=== PATIENT | male | born 1980 ===

== ENCOUNTER 2016-09-16 02:48 | Inpatient (IN) | payer BC, OTHER ==
--- NOTE | 2016-09-16 03:42 | ED PDOC ---
HPI: Trauma/Fall - HPI Time Seen by Provider: 09/16/16 02:56 Chief Complaint (Nursing): Trauma Chief Complaint (Provider): Head Injury History Per: Patient History/Exam Limitations: no limitations Onset/Duration Of Symptoms: Hrs Location Of Injury: Left: Head (abrasions noted to left side of face, contusion noted to left side of forehead), Anterior: Head Severity: Moderate Associated Symptoms: LOC, Memory Impairment (patient does not recall incident) Additional Complaint(s): Sid Pedro is a 36 year old male, with no pertinent past medical history, who presents to the emergency department for the evaluation of a head injury, that the patient experienced a couple of hours prior to arrival. Patient reports drinking alcohol prior to falling head first to the concrete and losing consciousness. His cousin witnessed the incident; however, patient denies recalling what happened. PMD: none specified - Fall Fall:Prior To Injury: Passed Out, Tripped Past Medical History Reviewed: Historical Data, Nursing Documentation, Vital Signs Vital Signs: Last Vital Signs Temp 98.7 F 09/16/16 02:54 Pulse 96 H 09/16/16 03:28 Resp 18 09/16/16 03:28 BP 140/62 09/16/16 03:28 Pulse Ox 100 09/16/16 03:28 - Medical History PMH: No Chronic Diseases - Surgical History Surgical History: No Surg Hx - Family History Family History: States: Unknown Family Hx - Social History Current smoker - smoking cessation education provided: Yes Alcohol: Social Drugs: Denies - Immunization History Hx Tetanus Toxoid Vaccination: No Hx Influenza Vaccination: No Hx Pneumococcal Vaccination: No - Home Medications Home Medications: Ambulatory Orders Medication Instructions Recorded No Known Home Med 09/16/16 - Allergies Allergies/Adverse Reactions: Allergies Allergy/AdvReac Type Severity Reaction Status Date / Time No Known Allergies Allergy Verified 03/02/14 15:25 Review of Systems ROS Statement: Except As Marked, All Systems Reviewed And Found Negative Musculoskeletal: Positive for: Other (head pain) Skin: Positive for: Bruising (left side of forehead), Other (abrasions noted to left side of face) Neurological: Positive for: Other (loss of consciousness, memory impairment). Negative for: Weakness, Numbness Physical Exam - Reviewed Nursing Documentation Reviewed: Yes Vital Signs Reviewed: Yes - Physical Exam Appears: Positive for: Non-toxic, No Acute Distress Head Exam: Positive for: NORMAL INSPECTION. Negative for: ATRAUMATIC ( abrasions noted to left side of face, contusion noted to left side of forehead) , NORMOCEPHALIC (swelling to left side of head) Skin: Positive for: Normal Color, Warm, Dry Eye Exam: Positive for: Normal appearance, EOMI, PERRL Neck: Positive for: Normal, Painless ROM Cardiovascular/Chest: Positive for: Regular Rate, Rhythm. Negative for: Murmur Respiratory: Positive for: Normal Breath Sounds. Negative for: Respiratory Distress Gastrointestinal/Abdominal: Positive for: Normal Exam, Soft. Negative for: Tenderness Extremity: Positive for: Normal ROM. Negative for: Tenderness, Swelling Neurologic/Psych: Positive for: Alert, er registrar II-XII, Oriented, Other (somnolent). Negative for: Motor/Sensory Deficits - Laboratory Results Result Diagrams: 09/16/16 03:58 09/16/16 03:58 - ECG O2 Sat by Pulse Oximetry: 100 (RA) Pulse Ox Interpretation: Normal - CT Scan/US CT Head w/o Contrast Other Rad Studies (CT/US): Interpreted By Me, Read By Radiologist, Radiology Report Reviewed - Critical Care Total Time (In Min): 30 Medical Decision Making Medical Decision Makin:56 Initial Impression: Head injury Initial Plan: * CT Head w/o Contrast * Alcohol Serum * Reevaluation Patient will be placed within ED Observation secondary to a head injury. Pending CT Head w/o Contrast. See Obs note for further updates. 03:[address] Colon called. As according to Dr. Justice, a repeat CT Head will be performed in six hours. but no acute surgical intervention needed at this time. 04:[address] Vu. Authorization Rep DR henning is also also aware of pt. will keep pt head eleveated above the bed DX alcohol intox, subarachnoid hemmoraghe, skull fractire. Scribe Attestation: Documented by Jimy Kraft, acting as a scribe for Toña Vega MD. Provider Scribe Attestation: All medical record entries made by the Scribe were at my direction and personally dictated by me. I have reviewed the chart and agree that the record accurately reflects my personal performance of the history, physical exam, medical decision making, and the department course for this patient. I have also personally directed, reviewed, and agree with the discharge instructions and disposition. Disposition - Clinical Impression Clinical Impression: Hemorrhage into subarachnoid space of neuraxis - Patient ED Disposition Is Patient to be Admitted: Yes - Disposition Disposition Time: 04:00 Condition: GUARDED
[2016-09-16 04:04] LABS: BASO # 0.1 K/uL (0.0-0.2); BASO % 0.8 % (0.0-2.0); EOS # 0.1 K/uL (0.0-0.7); EOS % 0.9 % (0.0-4.0); HEMATOCRIT 47.8 % (35.0-51.0); LYMPH # 1.2 K/uL (1.0-4.3); LYMPH % 12.4 % (20.0-40.0); MEAN CELL VOLUME 92.7 fl (80.0-94.0); MEAN CORPUSCULAR HEMOGLOBIN 31.4 pg (27.0-31.0); MEAN CORPUSCULAR HGB CONC 33.8 g/dL (33.0-37.0); MEAN PLATELET VOLUME 8.7 fl (7.2-11.7); MONO # 0.5 K/uL (0.0-0.8); MONO % 5.3 % (0.0-10.0); NEUT # 8.1 K/uL (1.8-7.0); NEUT % 80.6 % (50.0-75.0); NRBC % 0.1 % (0.0-0.0); RED CELL DISTRIBUTION WIDTH 14.3 % (11.5-14.5)
[2016-09-16 04:26] LABS: PARTIAL THROMBOPLASTIN TIME 22.4 SECONDS (23.3-32.5)
[2016-09-16 04:30] LABS: ALB/GLOB RATIO 1.2 (1.0-2.1); ALKALINE PHOSPHATASE 80 U/L (38-126); ALT/SGPT 34 U/L (21-72); AST/SGOT 49 U/L (17-59); BILIRUBIN,TOTAL 0.3 mg/dl (0.2-1.3); BLOOD UREA NITROGEN 18 mg/dl (9-20); CALCIUM 9.3 mg/dL (8.4-10.2); CARBON DIOXIDE 24 mmol/L (22-30); CHLORIDE 102 mmol/L (98-107); GFR AFRICAN-AMERICAN > 60; GLUCOSE,RANDOM 133 mg/dL (75-110); SODIUM 145 mmol/l (132-148); TOTAL PROTEIN 8.1 G/DL (6.3-8.2)
--- NOTE | 2016-09-16 04:40 | CP.PCM.CON ---
History of Present Illness - History of Present Illness History of Present Illness: Attending: Tyrel Vu MD PCP: None named Reason for Consult: Critical Care management Chief Complaint: Fall/Head trauma HPI: The Hx is obtained from the Patient, his cousin and the Medical records. He is a 36 years old male with no significant medical hx, was drinking alcohol. Brought to the ED after he tripped and fell to the concrete receiving abrasions to the left forehead, left side of the face and left chin. He referred an episode of LOC as he cannot recall the incident. at present he refers headache but no dizziness, no nausea nor vomits,,No chest pain nor palpitations, No diarrhea nor Dysuria. 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 absent: Fatigue, Fever - EENT Eyes: absent: Diplopia, Photophobia, Requires Corrective Lenses, Sees Flashes Ears: absent: Decreased Hearing, Ear Discharge, Ear Pain, Tinnitus Nose/Mouth/Throat: absent: Epistaxis, Nasal Congestion, Nasal Discharge - Cardiovascular Cardiovascular: absent: Chest Pain, Dyspnea, Leg Edema - Respiratory Respiratory: absent: Cough, Dyspnea, Stridor - Gastrointestinal Gastrointestinal: absent: Constipation, Diarrhea, Nausea, Vomiting - Genitourinary Genitourinary: absent: Dysuria, Flank Pain, Hematuria, Urinary Frequency - Musculoskeletal Musculoskeletal: absent: Arthralgias, Myalgias, Stiffness - Integumentary Integumentary: absent: Pruritus, Rash Additional comments: Abrasions to left side of face - Neurological Neurological: Headaches. absent: Confusion, Focal Weakness - Psychiatric Psychiatric: absent: Anxiety, Depression, Panic Attacks - Endocrine Endocrine: absent: Palpitations, Polydipsia, Polyphagia, Polyuria - Hematologic/Lymphatic Hematologic: absent: Easy Bleeding, Easy Bruising Past Patient History - Past Medical History & Family History Past Medical History?: No - Past Social History Smoking Status: Never Smoked Chewing Tobacco Use: No Cigar Use: No Alcohol: Social Drugs: Denies Home Situation {Lives}: With Family - CARDIAC Hx Cardiac Disorders: No - PULMONARY Hx Respiratory Disorders: No - NEUROLOGICAL Hx Alzheimer's Disease: No - HEENT Hx HEENT Problems: No - RENAL Hx Chronic Kidney Disease: No - ENDOCRINE/METABOLIC Hx Endocrine Disorders: No - HEMATOLOGICAL/ONCOLOGICAL Hx Blood Disorders: No - INTEGUMENTARY Hx Dermatological Problems: No - MUSCULOSKELETAL/RHEUMATOLOGICAL Hx Musculoskeletal Disorders: No - GASTROINTESTINAL Hx Gastrointestinal Disorders: No - GENITOURINARY/GYNECOLOGICAL Hx Genitourinary Disorders: No - PSYCHIATRIC Hx Psychophysiologic Disorder: No Hx Substance Use: No - SURGICAL HISTORY Hx Surgeries: No - ANESTHESIA Hx Anesthesia: No Hx Anesthesia Reactions: No Meds Allergies/Adverse Reactions: Allergies Allergy/AdvReac Type Severity Reaction Status Date / Time No Known Allergies Allergy Verified 03/02/14 15:25 Physical Exam - Head Exam Head Exam: NORMOCEPHALIC Additional comments: Contusion with erythema and edema at left forehead.left side of face with multiple abrasions including the chin - Eye Exam Eye Exam: EOMI, Normal appearance Pupil Exam: NORMAL ACCOMODATION, PERRL - ENT Exam ENT Exam: Mucous Membranes Moist, Normal Exam. absent: Normal External Ear Exam , Normal Oropharynx - Neck Exam Neck exam: Positive for: Full Rom, Normal Inspection. Negative for: Lymphadenopathy, Tenderness - Respiratory Exam Respiratory Exam: Clear to Auscultation Bilateral. absent: Rales, Rhonchi, Wheezes - Cardiovascular Exam Cardiovascular Exam: REGULAR RHYTHM, RRR, +S1, +S2. absent: Gallop, JVD - GI/Abdominal Exam GI & Abdominal Exam: Normal Bowel Sounds, Soft. absent: Mass, Organomegaly, Tenderness - Rectal Exam Rectal Exam: Deferred - Extremities Exam Extremities exam: Positive for: full ROM, normal inspection. Negative for: calf tenderness, pedal edema - Back Exam Back exam: NORMAL INSPECTION. absent: CVA tenderness (L), CVA tenderness (R) - Neurological Exam Neurological exam: Alert, CN II-XII Intact, Oriented x3, Reflexes Normal Additional comments: No facial droop. Motor strength 5/5 at both upper andl ower extremitits. - Psychiatric Exam Psychiatric exam: Normal Affect, Normal Mood - Skin Skin Exam: Cyanosis, Dry, Normal Color, Warm Results - Vital Signs Recent Vital Signs: Last Vital Signs Temp 98.7 F 09/16/16 02:54 Pulse 96 H 09/16/16 03:28 Resp 18 09/16/16 03:28 BP 140/62 09/16/16 03:28 Pulse Ox 100 04/10/17 04:18 - Labs Result Diagrams: 09/16/16 03:58 09/16/16 03:58 Labs: Laboratory Results - last 24 hr 09/16/16 09/16/16 03:25 03:58 WBC 10.0 RBC 5.16 Hgb 16.2 Hct 47.8 MCV 92.7 MCH 31.4 H MCHC 33.8 RDW 14.3 Plt Count 309 MPV 8.7 Neut % (Auto) 80.6 H Lymph % (Auto) 12.4 L Limestone % (Auto) 5.3 Eos % (Auto) 0.9 Baso % (Auto) 0.8 Neut # 8.1 H Lymph # 1.2 Limestone # 0.5 Eos # 0.1 Baso # 0.1 PT 11.9 H INR 1.14 H APTT 22.4 L Sodium 145 Potassium 4.0 Chloride 102 Carbon Dioxide 24 Anion Gap 23 H BUN 18 Creatinine 1.0 Est GFR ( Amer) > 60 Est GFR (Non-Af Amer) > 60 Random Glucose 133 H Calcium 9.3 Total Bilirubin 0.3 AST 49 ALT 34 Alkaline Phosphatase 80 Total Protein 8.1 Albumin 4.5 Globulin 3.6 Albumin/Globulin Ratio 1.2 Alcohol, Quantitative 84 H - Imaging and Cardiology CT scan - head Status: Image reviewed by me, Report reviewed by me Additional comment: FINDINGS: Brain: There is suggestion of trace subarachnoid blood along the inferior aspect of the right temporal occipital region and possibly at the lateral aspect of the right cistern of the lateral cerebral fossa. There is also trace subarachnoid blood suggested in the anterior left sylvian fissure. No significant white matter disease. No edema. Ventricles: Unremarkable. No ventriculomegaly. Bones/joints: There is a nondisplaced fracture of the left frontal bone which extends through the superior left orbital rim and obliquely across the left orbital roof. Soft tissues: Slight lateral left forehead soft tissue swelling. Sinuses: Unremarkable as visualized. No acute sinusitis. Mastoid air cells: Unremarkable as visualized. No mastoid effusion. IMPRESSION: 1. Slight soft tissue swelling in the lateral left forehead. 2. Nondisplaced fracture of the underlying left frontal bone extending through the superior left orbital rim and across the left orbital roof. 3. Minimal subarachnoid hemorrhage along the caudal aspect of the left temporal occipital region along the right tentorium and trace subarachnoid blood in the right cistern of the lateral cerebral fossa and in the anterior left sylvian fissure. Assessment & Plan - Assessment and Plan (Free Text) Assessment: #.Non displaced Fracture of left Frontal bone #. Acute Subaracnoid Hemorrhage Plan: 36 years old male was drinking alcohol, tripped and fell to the concrete receiving trauma to left forehead, left side of the face and left chin with LOC. He refers headache but no dizziness, no nausea nor vomits,,No chest pain nor palpitations, No diarrhea nor Dysuria. #.Non displaced Fracture of left Frontal bone extending through the superior left orbit rim and across the roof - Neuro surgery consulted - pain management #. Acute Small Subaracnoid Hemorrhage - Admit to ICU - Dr Justice neurosurgeon on consult - Neuro checks Q1h - Controll Blood Pressure - NPO - IV fluids - Repeat Head CT without contrast in 6 hours #. Alcohol abuse - Banana bag with Thiamine/ MV/ Folic Acid #. Stomach Ulcer prophylaxis with Pantoprazole #. DVT prophylaxis with SCD #. Code Status: Full - Date & Time Date: 09/16/16 Time: 04:40
[2016-09-16] MEDS ORDERED: Sodium Chloride 0.9% 1,000 ML IV SCH (05:00)
[2016-09-16] MEDS ORDERED: Multivitamin (MVI) 10 ML, Thiamine 100 MG, Folic Acid 1 MG in Sodium Chloride 0.9% 1,00... IV ONE (05:13)
[2016-09-16 07:46] VITALS: BMI 27.4
[2016-09-16 08:41] LABS: MEAN CELL VOLUME 92.7 fl (80.0-94.0); MEAN CORPUSCULAR HGB CONC 33.4 g/dL (33.0-37.0); RED CELL DISTRIBUTION WIDTH 14.5 % (11.5-14.5); WHITE BLOOD COUNT 11.7 K/uL (4.8-10.8)
--- NOTE | 2016-09-16 09:26 | CT ---
PROCEDURE: CT HEAD WITHOUT CONTRAST. HISTORY: trauma COMPARISON: None available. TECHNIQUE: Axial computed tomography images were obtained through the head/brain without intravenous contrast. Radiation dose: Total exam DLP = 1237.65 mGy-cm. This CT exam was performed using one or more of the following dose reduction techniques: Automated exposure control, adjustment of the mA and/or kV according to patient size, and/or use of iterative reconstruction technique. FINDINGS: HEMORRHAGE: Current study reveals what is felt to represent the small amount of subarachnoid hemorrhage layering along the tentorium right greater than left as well as in the anterior aspect right middle cranial fossa and lateral fissure along the inferior sulci posterior aspect right temporal lobe. Small amount of subarachnoid hemorrhage and about the occipital pole and left sylvian fissure. The there may also be some mild diffuse cerebral edema. BRAIN: In addition, there appear to be some mild chronic periventricular white matter ischemic changes most conspicuous about the frontal horns left greater than right. Regions VENTRICLES: Ventricular and sulcal size are within range of normal for this patient's stated age. CALVARIUM: No acute calvarial fractures. PARANASAL SINUSES: Visualized paranasal sinuses are well-developed and currently well-aerated. MASTOID AIR CELLS: Unremarkable as visualized. No inflammatory changes. OTHER FINDINGS: None. IMPRESSION: There appears to be a small amount of posttraumatic subarachnoid hemorrhage likely posttraumatic in origin given the patient's history of fall. Suspect mild cerebral edema. Mild chronic periventricular white matter ischemic changes as above. Concordant preliminary results provided by overnight radiology service
[2016-09-16 09:28] LABS: THYROID STIMULATING HORMONE 0.8 mIU/ML (0.46-4.68)
--- NOTE | 2016-09-16 09:50 | RAD ---
HISTORY: chest pain COMPARISON: No prior. FINDINGS: LUNGS: No active pulmonary disease. PLEURA: No significant pleural effusion identified, no pneumothorax apparent. CARDIOVASCULAR: Normal. OSSEOUS STRUCTURES: No significant abnormalities. VISUALIZED UPPER ABDOMEN: Normal. OTHER FINDINGS: None. IMPRESSION: No active disease.
--- NOTE | 2016-09-16 11:25 | CP.PCM.PN ---
Subjective - Date & Time of Evaluation Date of Evaluation: 09/16/16 Time of Evaluation: 11:24 - Subjective Subjective: consult dictated gcs [address] 2 ok rec mobilize,diet dc am Objective - Vital Signs/Intake and Output Vital Signs (last 24 hours): Temp Pulse Resp BP Pulse Ox 99.1 F 88 14 133/75 98 09/16/16 08:00 09/16/16 10:00 09/16/16 10:00 09/16/16 10:00 09/16/16 10:00 Intake and Output: 09/16/16 09/16/16 06:59 18:59 Intake Total 500 Output Total 200 Balance 300 - Medications Medications: Current Medications Multivitamins/Vitamin C 10 ml/Thiamine HCl 100 mg/ Folic Acid 1 mg/ Sodium Chloride 1,011.2 mls @ 100 mls/hr IV .Q10H7M ONE Stop: 09/16/16 15:19 Last Admin: 09/16/16 06:34 Dose: 100 mls/hr Morphine Sulfate (Morphine) 1 mg IVP Q4 PRN PRN Reason: Pain, Mild (1-3) Morphine Sulfate (Morphine) 2 mg IVP Q4 PRN PRN Reason: Pain, moderate (4-7) Last Admin: 09/16/16 10:13 Dose: 2 mg Pantoprazole Sodium (Protonix Inj) 40 mg IVP DAILY HUY Last Admin: 09/16/16 08:24 Dose: 40 mg - Labs Labs: 09/16/16 07:40 PT 11.9 SECONDS (9.6-11.2) H 09/16/16 03:58 INR 1.14 (0.92-1.08) H 09/16/16 03:58 APTT 22.4 SECONDS (23.3-32.5) L 09/16/16 03:58
--- NOTE | 2016-09-16 11:33 | CT ---
PROCEDURE: CT HEAD WITHOUT CONTRAST. HISTORY: Skull Fx/subaracnoid Hemorrhage COMPARISON: None available. TECHNIQUE: Axial computed tomography images were obtained through the head/brain without intravenous contrast. Radiation dose: Total exam DLP = 863.94 mGy-cm. This CT exam was performed using one or more of the following dose reduction techniques: Automated exposure control, adjustment of the mA and/or kV according to patient size, and/or use of iterative reconstruction technique. FINDINGS: HEMORRHAGE: There is a small amount of residual subarachnoid hemorrhage seen along the tentorial margin improved from prior study. Previously noted subarachnoid hemorrhage along the right temporal occipital region as well as left sylvian fissure also decreased. Slightly improved previously suspected mild cerebral edema. BRAIN: Mild chronic periventricular white matter ischemic changes most pronounced about frontal horns again noted. VENTRICLES: No evidence of inés hydrocephalus CALVARIUM: Nondisplaced fracture of the left frontal bone extending to the left orbital roof unchanged PARANASAL SINUSES: Unremarkable as visualized. No significant inflammatory changes. MASTOID AIR CELLS: Unremarkable as visualized. No inflammatory changes. OTHER FINDINGS: None. IMPRESSION: There is a small amount of residual subarachnoid hemorrhage though improved from prior study. Suspect mild cerebral edema. Stable appearing fracture traversing the left frontal calvarium extending through the left orbital roof.
--- NOTE | 2016-09-16 13:03 | PN ---
DATE: 09/16/2016 LOCATION: The patient is in ICU, bed 432. TIME SPENT: 35 minutes. SUBJECTIVE: The patient is seen and evaluated at the bedside. A 36-year-old male with no significan t medical history, status post tripped and fell to the concrete receiving abrasions to the left foreh ead, left side of the face, left chin. CT head showed a mild subarachnoid hemorrhage. Evaluated by neurosurgery who recommended a repeat CT this morning. CT shows decrease in the previously noted hem orrhage, nondisplaced fracture of the left frontal bone extending to roof of the left orbit. Remains alert, awake, follows commands, appropriate. Pisek coma scale is 15. Mild pain at the sit e of abrasion. No shortness of breath, chest pain or palpitation. No abdominal pain or diarrhea. PHYSICAL EXAMINATION: VITAL SIGNS: Temperature 99.1, heart rate 88 regular; respiratory rate of 14, thoracoabdominal; bloo d pressure 133/75, mean arterial pressure of 94; pulse oximetry 98% on oxygen 2 liters nasal cannula. HEENMT: No diplopia or photophobia. No discharge from ear. No nasal congestion or epistaxis. HEART: Rhythm regular. S1, S2 normal. ABDOMEN: Bowel sounds present. Soft. EXTREMITIES: Unremarkable. NEUROLOGIC: Nonfocal. IMPRESSION: Mild erythema and edema at the left forehead, left side of the face with multiple abrasi ons, including the chin, status post tripped and fell at home, sustained a nondisplaced fracture of t he skull. Repeat CAT scan shows no change. Residual subarachnoid hemorrhage along the tentorial mar gin also improved on the repeat CT. No seizure or headache noted. Seen by neurosurgery consult; rec ommended advanced diet, analgesics and close monitoring. If there is no further headache or seizure, can be discharged in the morning. Pedro Hays MD cc: [id number] TT: 09/16/2016 13:02:50 Confirmation # [id number] Dictation # [id number] mn
--- NOTE | 2016-09-16 18:33 | CON ---
DATE: 09/16/2016 This is a 36-year-old gentleman that apparently was out last night, fell, hit his head; was brought t o the [facility] ER very early this morning. Ultimately had a CT of the brain at 3 a.m. which documente d a skull fracture, intracranial hemorrhage. Neurosurgical evaluation was requested. Subsequently, the patient, as recommended, has had a followup CT. Interviewing him today, the patient really reports a fair amount of headache. Otherwise, no neurolog ical symptoms, sensory disturbance, epileptiform activity, photophobia, etc. His past medical history is basically negative. On physical exam he is very easily arousable. He had his eyes open when spoken to. He is oriented x 3. He follows all commands briskly. Pupils are equal, reactive, and EOMs are full. Lower cranial nerves are all intact. He has 5/5 strength in all 4 extremities. He has no drift. He has a normal sensory exam. His gait was not tested. CT of the brain done, again at 3 a.m., then followed up at approximately 10 a.m., shows a very small area of traumatic subarachnoid hemorrhage in the right posterior frontal and parietal region without any mass effect. There is a supraorbital skull fracture that is very difficult see. There is really no significant change between these 2 CTs. IMPRESSION AND PLAN: The patient is neurologically intact. His CT is stable. My recommendation would be to transfer him out of the ICU today, and mobilized him. As soon as he is ambulating and is eating okay, I think he can go home; probably tomorrow morning. 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 Fred Justice MD cc: [id number] TT: 09/16/2016 18:33:14 Confirmation # [id number] Dictation # [id number] kane
[2016-09-16 20:53] LABS: HEMATOCRIT 45.3 % (35.0-51.0); MEAN CELL VOLUME 93.1 fl (80.0-94.0); MEAN CORPUSCULAR HEMOGLOBIN 30.4 pg (27.0-31.0); MEAN CORPUSCULAR HGB CONC 32.7 g/dL (33.0-37.0); RED CELL DISTRIBUTION WIDTH 14.3 % (11.5-14.5); WHITE BLOOD COUNT 11.4 K/uL (4.8-10.8)
[2016-09-16 21:18] LABS: ALB/GLOB RATIO 1.2 (1.0-2.1); ALKALINE PHOSPHATASE 81 U/L (38-126); ALT/SGPT 30 U/L (21-72); AST/SGOT 32 U/L (17-59); BILIRUBIN,TOTAL 0.6 mg/dl (0.2-1.3); BLOOD UREA NITROGEN 13 mg/dl (9-20); CARBON DIOXIDE 28 mmol/L (22-30); CHLORIDE 100 mmol/L (98-107); GFR AFRICAN-AMERICAN > 60; GLUCOSE,RANDOM 107 mg/dL (75-110); SODIUM 140 mmol/l (132-148); TOTAL PROTEIN 7.5 G/DL (6.3-8.2)
[2016-09-16] MEDS: cefTRIAXone 2 GM in Sodium Chloride 0.9% 100 ML IVPB SCH (22:04)
--- NOTE | 2016-09-17 07:46 | PN ---
DATE: 09/17/2016 The patient seen and examined. Interim events noted. The patient feels okay. No headache, no chest pain, no dizziness, no shortness of breath. PHYSICAL EXAMINATION: GENERAL: The patient is in no acute distress. VITAL SIGNS: Stable. HEART: S1, S2 normal, regular. LUNGS: Good bilateral air entry. ABDOMEN: Soft, nontender. EXTREMITIES: No edema, no calf swelling, no tenderness, no acute ischemia. CENTRAL NERVOUS SYSTEM: Essentially unchanged. There is no sign of any acute gross focal motor or s ensory neurological deficit. HEENT: Shows superficial bruise on ____ frontal healing nicely without any complications. DIAGNOSTIC DATA: Available diagnostic data reviewed. CAT scan shows improvement. Neurosurgery consult noted and appreciated. Overall, patient is medically stable for discharge. PLAN: As ordered. Case and plan discussed with patient. Tyrel Vu MD cc: [id number] TT: 09/17/2016 07:45:56 Confirmation # [id number] Dictation # [id number] yandy
[2016-09-17] MEDS: cefTRIAXone 2 GM in Sodium Chloride 0.9% 100 ML IVPB SCH (08:57)
--- NOTE | 2016-09-17 10:37 | CP.PCM.CON ---
History of Present Illness - History of Present Illness History of Present Illness: 36 years old male with no significant medical hx, was drinking alcohol. Brought to the ED after he tripped and fell to the concrete receiving abrasions to the left forehead, left side of the face and left chin. He referred an episode of LOC as he cannot recall the incident. at present he refers headache but no dizziness, no nausea found to have skull fx, subdural hematoma, epidural tear recently spiking fevers neurosurg on board PMH: No Chronic Diseases PSH: No Surg Hx SH: Never Smoked cigarettes; No illegal drug use; Alcohol abuse; live with family; works as a [employer] in a [employer] FH: Unknown Family Hx Allergies: NKDA Review of Systems - Constitutional Constitutional: As Per HPI, Fever - EENT Eyes: absent: As Per HPI, Blind Spots, Blurred Vision, Change in Vision, Decreased Night Vision, Diplopia, Discharge, Dry Eye, Exophthalmos, Floaters, Irritation, Itchy Eyes, Loss of Peripheral Vision, Pain, Photophobia, Requires Corrective Lenses, Sees Flashes, Spots in Vision, Tunnel Vision, Other Visual Disturbances, Loss of Vision, Other Ears: absent: As Per HPI, Decreased Hearing, Ear Discharge, Ear Pain, Tinnitus, Abnormal Hearing, Disequilibrium, Dizziness, Other Nose/Mouth/Throat: absent: As Per HPI, Epistaxis, Nasal Congestion, Nasal Discharge, Nasal Obstruction, Nasal Trauma, Nose Pain, Post Nasal Drip, Sinus Pain, Sinus Pressure, Bleeding Gums, Change in Voice, Dental Pain, Dry Mouth, Dysphagia, Halitosis, Hoarsness, Lip Swelling, Mouth Lesions, Mouth Pain, Odynophagia, Sore Throat, Throat Swelling, Tongue Swelling, Facial Pain, Neck Pain, Neck Mass, Other - Cardiovascular Cardiovascular: absent: As Per HPI, Acrocyanosis, Chest Pain, Chest Pain at Rest , Chest Pain with Activity, Claudication, Diaphoresis, Dyspnea, Dyspnea on Exertion, Edema, Irregular Heart Rhythm, Pain Radiating to Arm/Neck/Jaw, Leg Edema, Leg Ulcers, Lightheadedness, Orthopnea, Palpitations, Paroxysmal Nocturnal Dyspnea, Pedal Edema, Radiating Pain, Rapid Heart Rate, Slow Heart Rate, Syncope, Other - Respiratory Respiratory: absent: As Per HPI, Cough, Dyspnea, Hemoptysis, Dyspnea on Exertion , Wheezing, Snoring, Stridor, Pain on Inspiration, Chest Congestion, Excessive Mucous Production, Change in Mucous Color, Pain with Coughing, Other - Gastrointestinal Gastrointestinal: absent: As Per HPI, Abdominal Pain, Belching, Bloating, Change in Bowel Habits, Change in Stool Character, Coffee Ground Emesis, Constipation, Cramping, Diarrhea, Dyspepsia, Dysphagia, Early Satiety, Excessive Flatus, Fecal Incontinence, Heartburn, Hematemesis, Hematochezia, Loose Stools, Melena, Nausea, Odynophagia, Temesmus, Vomiting, Other - Genitourinary Genitourinary: absent: As Per HPI, Change in Urinary Stream, Difficulty Urinating, Dysuria, Flank Pain, Hematuria, Pyuria, Nocturia, Urinary Incontinence, Urinary Frequency, Urinary Hesitance, Urinary Urgency, Voiding Freq/Small Amts, Freq UTI, Hx Renal/Bladder Calculi, Hx /Renal Surgery, Bladder Distension, Other - Musculoskeletal Musculoskeletal: As Per HPI - Integumentary Integumentary: As Per HPI - Neurological Neurological: As Per HPI - Endocrine Endocrine: absent: As Per HPI, Change in Body Appearance, Change in Libido, Cold Intolorance, Deepening of Voice, Excessive Sweating, Fatigue, Flushing, Heat Intolorance, Increase in Ring/Shoe/Hat Size, Palpitations, Polydipsia, Polyphagia, Polyuria, Other - Hematologic/Lymphatic Hematologic: absent: As Per HPI, Easy Bleeding, Easy Bruising, Lymphadenopathy, Other Past Patient History - Past Medical History & Family History Past Medical History?: No - Past Social History Smoking Status: Never Smoked - CARDIAC Hx Cardiac Disorders: No - PULMONARY Hx Respiratory Disorders: No - NEUROLOGICAL Hx Alzheimer's Disease: No - HEENT Hx HEENT Problems: No - RENAL Hx Chronic Kidney Disease: No - ENDOCRINE/METABOLIC Hx Endocrine Disorders: No - HEMATOLOGICAL/ONCOLOGICAL Hx Blood Disorders: No - INTEGUMENTARY Hx Dermatological Problems: No - MUSCULOSKELETAL/RHEUMATOLOGICAL Hx Musculoskeletal Disorders: No Hx Falls: Yes - GASTROINTESTINAL Hx Gastrointestinal Disorders: No - GENITOURINARY/GYNECOLOGICAL Hx Genitourinary Disorders: No - PSYCHIATRIC Hx Psychophysiologic Disorder: No Hx Substance Use: No - SURGICAL HISTORY Hx Surgeries: No - ANESTHESIA Hx Anesthesia: No Hx Anesthesia Reactions: No Meds Allergies/Adverse Reactions: Allergies Allergy/AdvReac Type Severity Reaction Status Date / Time No Known Allergies Allergy Verified 03/02/14 15:25 - Medications Medications: Current Medications Acetaminophen (Tylenol 325mg Tab) 650 mg PO Q4 PRN PRN Reason: Fever >100.4 F Last Admin: 09/17/16 02:37 Dose: 650 mg Ceftriaxone Sodium 2 gm/ (Sodium Chloride) 100 mls @ 100 mls/hr IVPB DAILY [facility] Last Admin: 09/17/16 08:57 Dose: 100 mls/hr Morphine Sulfate (Morphine) 1 mg IVP Q4 PRN PRN Reason: Pain, Mild (1-3) Morphine Sulfate (Morphine) 2 mg IVP Q4 PRN PRN Reason: Pain, moderate (4-7) Last Admin: 09/16/16 10:13 Dose: 2 mg Pantoprazole Sodium (Protonix Inj) 40 mg IVP DAILY [facility] Last Admin: 09/17/16 08:59 Dose: 40 mg Physical Exam - Constitutional Appears: Non-toxic - Head Exam Head Exam: absent: ATRAUMATIC, NORMOCEPHALIC Additional comments: swelling left facial area mild ptosis left eye excoriation/ hematoma left face - Eye Exam Eye Exam: EOMI, PERRL. absent: Conjunctival injection, Scleral icterus - ENT Exam ENT Exam: Mucous Membranes Dry, Normal External Ear Exam - Neck Exam Neck exam: Negative for: Lymphadenopathy, Thyromegaly - Respiratory Exam Respiratory Exam: Decreased Breath Sounds, Clear to Auscultation Bilateral - Cardiovascular Exam Cardiovascular Exam: REGULAR RHYTHM, +S1, +S2 - GI/Abdominal Exam GI & Abdominal Exam: Normal Bowel Sounds, Soft. absent: Tenderness - Rectal Exam Rectal Exam: Deferred - Exam Exam: NORMAL INSPECTION - Extremities Exam Extremities exam: Positive for: pedal pulses present. Negative for: calf tenderness, pedal edema, tenderness - Back Exam Back exam: absent: CVA tenderness (L), CVA tenderness (R) - Neurological Exam Neurological exam: Alert, CN II-XII Intact, Oriented x3, Reflexes Normal - Psychiatric Exam Psychiatric exam: Normal Mood - Skin Skin Exam: Dry Results - Vital Signs Recent Vital Signs: Last Vital Signs Temp 98.7 F 09/17/16 07:45 Pulse 68 09/17/16 07:45 Resp 20 09/17/16 07:45 BP 115/73 09/17/16 07:45 Pulse Ox 95 09/17/16 07:45 - Labs Result Diagrams: 09/16/16 20:20 09/16/16 20:20 Labs: Laboratory Results - last 24 hr 09/16/16 09/16/16 07:40 20:20 WBC 11.4 H RBC 4.86 Hgb 14.8 Hct 45.3 MCV 93.1 MCH 30.4 MCHC 32.7 L RDW 14.3 Plt Count 295 Sodium 140 Potassium 4.0 Chloride 100 Carbon Dioxide 28 Anion Gap 16 BUN 13 Creatinine 0.9 Est GFR ( Amer) > 60 Est GFR (Non-Af Amer) > 60 Random Glucose 107 Calcium 9.0 Total Bilirubin 0.6 AST 32 ALT 30 Alkaline Phosphatase 81 Total Protein 7.5 Albumin 4.2 Globulin 3.3 Albumin/Globulin Ratio 1.2 Triglycerides 131 Assessment & Plan (1) Headache Status: Acute (2) Fever Status: Acute (3) Subdural hematoma Status: Acute - Assessment and Plan (Free Text) Assessment: check cultures iv rocephin
[2016-09-18 07:34] LABS: HEMATOCRIT 43.6 % (35.0-51.0); MEAN CELL VOLUME 94.1 fl (80.0-94.0); MEAN CORPUSCULAR HGB CONC 32.9 g/dL (33.0-37.0); RED CELL DISTRIBUTION WIDTH 14.4 % (11.5-14.5); WHITE BLOOD COUNT 8.1 K/uL (4.8-10.8)
[2016-09-18 07:44] VITALS: BP 110/70; PULSE 68; RESP 18; TEMP 98.2; O2SAT 98
--- NOTE | 2016-09-18 08:15 | CP.PCM.DIS ---
Provider - Provider Date of Admission: 09/16/16 04:15 Attending physician: Tyrel Vu MD Time Spent in preparation of Discharge (in minutes): 45 Diagnosis - Discharge Diagnosis (1) Subarachnoid hemorrhage Status: Acute Comment: Rt posterior frontal/parietal region w/o mass effect. - f/u Dr Justice. 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 Hospital Course - Lab Results Lab Results: Micro Results 09/16/16 20:20 Blood Blood Culture - Preliminary NO GROWTH AFTER 24 HOURS 09/16/16 20:45 Blood Blood Culture - Preliminary NO GROWTH AFTER 24 HOURS 09/16/16 06:18 Sputum Gram Stain - Final Most Recent Lab Values WBC 8.1 K/uL (4.8-10.8) 09/18/16 06:55 RBC 4.64 Mil/uL (4.40-5.90) 09/18/16 06:55 Hgb 14.4 g/dL (12.0-18.0) 09/18/16 06:55 Hct 43.6 % (35.0-51.0) 09/18/16 06:55 MCV 94.1 fl (80.0-94.0) H 09/18/16 06:55 MCH 31.0 pg (27.0-31.0) 09/18/16 06:55 MCHC 32.9 g/dL (33.0-37.0) L 09/18/16 06:55 RDW 14.4 % (11.5-14.5) 09/18/16 06:55 Plt Count 285 K/uL (130-400) 09/18/16 06:55 MPV 8.7 fl (7.2-11.7) 09/16/16 03:58 Neut % (Auto) 80.6 % (50.0-75.0) H 09/16/16 03:58 Lymph % (Auto) 12.4 % (20.0-40.0) L 09/16/16 03:58 [place] % (Auto) 5.3 % (0.0-10.0) 09/16/16 03:58 Eos % (Auto) 0.9 % (0.0-4.0) 09/16/16 03:58 Baso % (Auto) 0.8 % (0.0-2.0) 09/16/16 03:58 Neut # 8.1 K/uL (1.8-7.0) H 09/16/16 03:58 Lymph # 1.2 K/uL (1.0-4.3) 09/16/16 03:58 [place] # 0.5 K/uL (0.0-0.8) 09/16/16 03:58 Eos # 0.1 K/uL (0.0-0.7) 09/16/16 03:58 Baso # 0.1 K/uL (0.0-0.2) 09/16/16 03:58 PT 11.9 SECONDS (9.6-11.2) H 09/16/16 03:58 INR 1.14 (0.92-1.08) H 09/16/16 03:58 APTT 22.4 SECONDS (23.3-32.5) L 09/16/16 03:58 Sodium 140 mmol/l (132-148) 09/16/16 20:20 Potassium 4.0 MMOL/L (3.6-5.0) 09/16/16 20:20 Chloride 100 mmol/L (98-107) 09/16/16 20:20 Carbon Dioxide 28 mmol/L (22-30) 09/16/16 20:20 Anion Gap 16 (10-20) 09/16/16 20:20 BUN 13 mg/dl (9-20) 09/16/16 20:20 Creatinine 0.9 mg/dL (0.8-1.5) 09/16/16 20:20 Est GFR ( Amer) > 60 09/16/16 20:20 Est GFR (Non-Af Amer) > 60 09/16/16 20:20 Random Glucose 107 mg/dL (75-110) 09/16/16 20:20 Calcium 9.0 mg/dL (8.4-10.2) 09/16/16 20:20 Total Bilirubin 0.6 mg/dl (0.2-1.3) 09/16/16 20:20 AST 32 U/L (17-59) 09/16/16 20:20 ALT 30 U/L (21-72) 09/16/16 20:20 Alkaline Phosphatase 81 U/L (38-126) 09/16/16 20:20 Total Protein 7.5 G/DL (6.3-8.2) 09/16/16 20:20 Albumin 4.2 g/dL (3.5-5.0) 09/16/16 20:20 Globulin 3.3 gm/dL (2.2-3.9) 09/16/16 20:20 Albumin/Globulin Ratio 1.2 (1.0-2.1) 09/16/16 20:20 Triglycerides 131 mg/DL (0-149) 09/16/16 07:40 Cholesterol 217 mg/dL (0-199) H 09/16/16 07:40 LDL Cholesterol Direct 147 mg/dL (0-129) H 09/16/16 07:40 HDL Cholesterol 42 MG/DL (30-70) 09/16/16 07:40 Vitamin B12 722 pg/mL (239-931) 09/16/16 07:40 TSH 3rd Generation 0.80 mIU/ML (0.46-4.68) 09/16/16 07:40 Urine Opiates Screen Negative (NEGATIVE) 09/16/16 05:30 Urine Methadone Screen Negative (NEGATIVE) 09/16/16 05:30 Ur Barbiturates Screen Negative (NEGATIVE) 09/16/16 05:30 Ur Phencyclidine Scrn Negative (NEGATIVE) 09/16/16 05:30 Ur Amphetamines Screen Negative (NEGATIVE) 09/16/16 05:30 U Benzodiazepines Scrn Negative (NEGATIVE) 09/16/16 05:30 U Oth Cocaine Metabols Negative (NEGATIVE) 09/16/16 05:30 U Cannabinoids Screen Negative (NEGATIVE) 09/16/16 05:30 Alcohol, Quantitative 84 mg/dl (0-10) H 09/16/16 03:25 Blood Type O POSITIVE 09/16/16 03:50 Blood Type Confirm O POSITIVE 09/16/16 04:46 Antibody Screen Negative 09/16/16 03:50 BBK History Checked No verified bt 09/16/16 03:50 - Hospital Course Hospital Course: 36M admitted after fall with LOC and subsequent CT findings of stable SAH and supraorbital fracture. 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 Pt had multiple abrasions and mild leukocytosis that he will be sent home on abx as per safety and health consultant Dr Zavala (ID). There have been no neurological complications and no seizure-like activity. He is stable for discharge to home with close follow up. Discharge Exam - Head Exam Head Exam: absent: ATRAUMATIC, NORMOCEPHALIC Discharge Plan - Discharge Medications Prescriptions: Amoxicillin/Clavulanate [Augmentin 875 MG-125 MG] 1 tab PO Q12H #14 tab - Follow Up Plan Condition: GUARDED Disposition: HOME/ ROUTINE Patient education suggested?: Yes Instructions: Skull Fracture (DC), Subarachnoid Hemorrhage (DC) Additional Instructions: Follow up with both Dr Vu and Dr Justice Do not return to work for 1 week. Referrals: Tyrel Vu MD [Staff Provider] - (1 week) Fred Justice MD [Staff Provider] - (1 week)
[2016-09-18] MEDS ORDERED: Pantoprazole 40 mg EC Tab PO SCH (09:00)
[2016-09-18] MEDS ORDERED: Amoxicillin-Clav 875-125 mg Tab PO SCH (09:00)
--- NOTE | 2016-09-18 12:38 | CP.PCM.PN ---
Subjective - Date & Time of Evaluation Date of Evaluation: 09/18/16 Time of Evaluation: 07:00 - Subjective Subjective: discharge plans reviewed for d/c on PO rx neurosurg follow up Objective - Vital Signs/Intake and Output Vital Signs (last 24 hours): Temp Pulse Resp BP Pulse Ox 98.2 F 68 18 110/70 98 09/18/16 07:44 09/18/16 07:44 09/18/16 07:44 09/18/16 07:44 09/18/16 07:44 Intake and Output: 09/18/16 09/18/16 06:59 18:59 Intake Total 120 Balance 120 - Medications Medications: Current Medications Amoxicillin/Clavulanate Potassium (Augmentin 875 Mg-125 Mg Tab) 1 tab PO Q12 [facility] Last Admin: 09/18/16 10:13 Dose: 1 tab Pantoprazole Sodium (Protonix Ec Tab) 40 mg PO DAILY [facility] Last Admin: 09/18/16 08:26 Dose: 40 mg - Labs Labs: 09/18/16 06:55 09/16/16 20:20 PT 11.9 SECONDS (9.6-11.2) H 09/16/16 03:58 INR 1.14 (0.92-1.08) H 09/16/16 03:58 APTT 22.4 SECONDS (23.3-32.5) L 09/16/16 03:58 - Constitutional Appears: Non-toxic, Chronically Ill - Head Exam Head Exam: absent: ATRAUMATIC - Eye Exam Eye Exam: PERRL. absent: Scleral icterus - ENT Exam ENT Exam: Mucous Membranes Dry - Neck Exam Neck Exam: absent: Lymphadenopathy - Respiratory Exam Respiratory Exam: Decreased Breath Sounds - Cardiovascular Exam Cardiovascular Exam: REGULAR RHYTHM, +S1, +S2 - GI/Abdominal Exam GI & Abdominal Exam: Distended, Soft. absent: Tenderness Assessment and Plan (1) Headache Status: Acute (2) Fever Status: Acute (3) Subdural hematoma Status: Acute
== END 2016-09-18 13:00 | disposition home or self-care (01) | DRG 564 ==
LOC: H.ER 02:48 → H.ERHOLD 04:15 → H.ICU/CCU 06:03 → H.MEDSURG1 13:42
PROVIDERS: ADMIT Internal Medicine; ATTEND Internal Medicine
DX: S02.82XA Fracture of other specified skull and facial bones, left side, initial encounter for closed fracture (principal); S06.6X9A Traumatic subarachnoid hemorrhage with loss of consciousness of unspecified duration, initial encounter; W01.198A Fall on same level from slipping, tripping and stumbling with subsequent striking against other object, initial encounter; Y93.9 Activity, unspecified; Y92.9 Unspecified place or not applicable; F10.129 Alcohol abuse with intoxication, unspecified; Y90.4 Blood alcohol level of 80-99 mg/100 ml; R40.2410 Glasgow coma scale score 13-15, unspecified time

== ENCOUNTER 2017-07-07 16:31 | Emergency (ER) | payer BC ==
[2017-07-07 16:31] VITALS: BMI 27.4
[2017-07-07 16:57] VITALS: BP 111/75; PULSE 71; RESP 20; TEMP 99
[2017-07-07 16:58] VITALS: O2SAT 97
[2017-07-07] MEDS ORDERED: Albuterol-Ipratrop 3 mg / 0.5 (3 ml) UD INH STA (19:17)
--- NOTE | 2017-07-07 19:21 | ED PDOC ---
HPI: General Adult Time Seen by Provider: 07/07/17 18:34 Chief Complaint (Nursing): Flu-like Symptoms Chief Complaint (Provider): Flu like symptoms History Per: Patient History/Exam Limitations: no limitations Onset/Duration Of Symptoms: Days Have you had recent travel within the past 21 days to any of the following countries: [place], [place], [place] or [place]?: No Current Symptoms Are (Timing): Still Present Additional Complaint(s): 37yo male, presents to ED for evaluation of cough, intermittent tactile fever for the past 4 days. Patient denies any abdominal pain, nausea or vomiting. He denies taking any medications for his symptoms. He has no other medical complaints. Past Medical History Reviewed: Historical Data, Nursing Documentation, Vital Signs Vital Signs: Last Vital Signs Temp 99 F 07/07/17 16:54 Pulse 71 07/07/17 16:54 Resp 20 07/07/17 16:54 BP 111/75 07/07/17 16:54 Pulse Ox 97 07/07/17 20:38 - Medical History PMH: Denies: Alzheimer's Disease, Chronic Kidney Disease - Surgical History Surgical History: No Surg Hx - Family History Family History: States: Unknown Family Hx - Immunization History Hx Tetanus Toxoid Vaccination: No Hx Influenza Vaccination: No Hx Pneumococcal Vaccination: No - Home Medications Home Medications: Ambulatory Orders Medication Instructions Recorded Amoxicillin/Clavulanate [Augmentin 1 tab PO Q12 #14 tab 09/18/16 875 MG-125 MG Tab] Albuterol HFA [Ventolin HFA 90 1 puff IH BID PRN #1 unit 07/07/17 mcg/actuation (8 g)] Azithromycin [Zithromax] 250 mg PO DAILY #6 tab 07/07/17 - Allergies Allergies/Adverse Reactions: Allergies Allergy/AdvReac Type Severity Reaction Status Date / Time No Known Allergies Allergy Verified 03/02/14 15:25 Review of Systems Constitutional: Positive for: Fever Respiratory: Positive for: Cough. Negative for: Shortness of Breath Gastrointestinal: Negative for: Nausea, Vomiting, Abdominal Pain Physical Exam - Reviewed Nursing Documentation Reviewed: Yes Vital Signs Reviewed: Yes - Physical Exam Appears: Positive for: Non-toxic, No Acute Distress Head Exam: Positive for: ATRAUMATIC, NORMAL INSPECTION, NORMOCEPHALIC Skin: Positive for: Normal Color Eye Exam: Positive for: Normal appearance Neck: Positive for: Supple Cardiovascular/Chest: Positive for: Regular Rate, Rhythm Respiratory: Positive for: Wheezing (diffuse). Negative for: Respiratory Distress Neurologic/Psych: Positive for: Alert, Oriented - ECG O2 Sat by Pulse Oximetry: 97 (RA) Pulse Ox Interpretation: Normal Medical Decision Making Medical Decision Making: Impression: Flu like symptoms Plan: -- Rapid flu -- CXR -- Duoneb 3ml INH Time: 1934 Serology reports reviewed, patient negative for Influenza. Scribe Attestation: Documented by Codi Dubon acting as a scribe for ADRIENNE Ruffin Provider Attestation: All medical record entries made by the Scribe were at my direction and personally dictated by me. I have reviewed the chart and agree that the record accurately reflects my personal performance of the history, physical exam, medical decision making, and the department course for this patient. I have also personally directed, reviewed, and agree with the discharge instructions and disposition. Disposition - Clinical Impression Clinical Impression: Acute bronchitis - Patient ED Disposition Is Patient to be Admitted: No Counseled Patient/Family Regarding: Diagnosis, Need For Followup, Rx Given - Disposition Disposition: Routine/Home Disposition Time: 20:48 Condition: GOOD Prescriptions: Albuterol HFA [Ventolin HFA 90 mcg/actuation (8 g)] 1 puff IH BID PRN #1 unit PRN Reason: Wheezing Azithromycin [Zithromax] 250 mg PO DAILY #6 tab Instructions: Acute Bronchitis (ED) Forms: [employer] (Belarusian)
--- NOTE | 2017-07-08 11:02 | RAD ---
HISTORY: cough, fever COMPARISON: Chest x-ray performed 09/16/16 TECHNIQUE: Chest PA and lateral FINDINGS: Examination limited by habitus. LUNGS: No focal consolidation. Please note that chest x-ray has limited sensitivity for the detection of pulmonary masses. PLEURA: No significant pleural effusion identified. No definite pneumothorax . CARDIOVASCULAR: The cardiomediastinal silhouette appears within normal limits of size. OSSEOUS STRUCTURES: No acute osseous abnormality identified. VISUALIZED UPPER ABDOMEN: Unremarkable. OTHER FINDINGS: None. IMPRESSION: No focal consolidation, significant pleural effusion, or definite pneumothorax identified.
== END 2017-07-07 20:58 | disposition home or self-care (01) ==
LOC: H.ER 16:31
DX: J20.9 Acute bronchitis, unspecified (principal)